=== PATIENT | male | born 1960 | race African-American/Black ===

== ENCOUNTER 2025-01-23 06:55 | Emergency (ER) | payer OTHER ==
[2025-01-23 07:01] VITALS: BP 140/92; PULSE 102; RESP 16; TEMP 98; BMI 18.6
[2025-01-23] MEDS ORDERED: ACETAMINOPHEN INJECTION 100 ML ONE (07:57)
[2025-01-23] MEDS: ACETAMINOPHEN 1000 MG/100 ML BAG IVPB ONE (07:59)
[2025-01-23 08:05] LABS: ABSOLUTE IMMATURE GRANULOCYTES 0.09 x10^3/uL (0.0-0.031); BASOPHILS # 0.05 x10^3/uL (0.01-0.08); EOSINOPHIL % 0.2 % (0.8-7.0); EOSINOPHILS # 0.03 x10^3/uL (0.04-0.54); HEMOGLOBIN 12.1 g/dL (13.7-17.5); MCHC 32.7 g/dl (32.3-36.5); MEAN CELL VOLUME 79.4 fl (79.0-92.2); MEAN PLT VOLUME 9.1 fl (9.4-12.4); MONOCYTE # 1.34 x10^3/uL (0.30-0.82); PLATELET COUNT 408 x10^3/uL (163-337); RDW 15.5 % (12.2-16.4)
[2025-01-23 08:10] LABS: INR 1.34 (0.83-1.09); PROTHROMBIN TIME (PATIENT) 14.6 SEC (9.7-13.0)
[2025-01-23 08:12] LABS: ACTIVATED PTT 35.3 SECONDS (25.2-36.5)
[2025-01-23 08:27] LABS: POTASSIUM 4.2 mmol/L (3.5-5.1)
[2025-01-23 08:29] LABS: ALBUMIN 3.3 g/dl (3.4-5.0); BLOOD UREA NITROGEN 11.2 mg/dL (7-18); CALCIUM 10.1 mg/dL (8.5-10.1)
[2025-01-23 08:33] LABS: CREATININE 0.7 mg/dL (0.55-1.3)
[2025-01-23 08:34] LABS: BILIRUBIN,TOTAL 0.5 mg/dL (0.2-1); TOT PROT 8.4 g/dl (6.4-8.2)
== END 2025-01-23 08:45 | disposition left against medical advice (07) ==
LOC: JER 06:55
PROC: 3E033NZ Introduction of Analgesics, Hypnotics, Sedatives into Peripheral Vein, Percutaneous Approach (ICD-10-PCS; principal; 2025-01-23)
DX: R10.32 Left lower quadrant pain (principal)
CPT/HCPCS: 36415; 80053; 83605; 85025; 85610; 85730; 86850; 86900; 86901; 99284-25; J0131